=== PATIENT | female | born 1990 | race Caucasian/White ===

== ENCOUNTER 2017-02-20 17:26 | Emergency (ER) | payer MEDICAID ==
[~2017-02-20] VITALS: Ht 165.1 cm; Wt 94.0 kg
[2017-02-20 17:37] VITALS: BP 136/74
== END 2017-02-20 23:50 | disposition left against medical advice (07) ==
LOC: ER 20:39
DX: R10.9 Unspecified abdominal pain (principal); Z53.21 Procedure and treatment not carried out due to patient leaving prior to being seen by health care provider